=== PATIENT | male | born 1970 | race African-American/Black ===

== ENCOUNTER 2021-08-12 10:31 | Inpatient (IN) | payer MEDICAID ==
[~2021-08-12] VITALS: Ht 182.9 cm; Wt 90.7 kg
[2021-08-12] MEDS ORDERED: ASPIRIN 325 MG TABLET PO ONE (11:00)
[2021-08-12] MEDS ORDERED: IV NS 0.9% 500 ML BAG IV ONE (11:00)
[2021-08-12] MEDS ORDERED: ONDANSETRON HCL/PF 4 MG/2 ML VIAL IV ONE (11:00)
[2021-08-12] MEDS ORDERED: ONDANSETRON HCL/PF 4 MG/2 ML VIAL IVP ONE (11:00)
[2021-08-12] MEDS ORDERED: NITROGLYCERIN 0.4 MG/TAB BOTTLE SL ONE (11:00)
--- NOTE | 2021-08-12 11:00 | NUR ---
Updated with plan of care
[2021-08-12] MEDS ORDERED: ONDANSETRON HCL/PF 4 MG/2 ML VIAL ONE (11:03)
[2021-08-12] MEDS ORDERED: ASPIRIN 325 MG TABLET ONE (11:03)
[2021-08-12] MEDS ORDERED: NITROGLYCERIN 0.4 MG/TAB BOTTLE ONE (11:07)
[2021-08-12 11:08] LABS: BASOPHILS # (AUTO) 0.2 K/uL (0.0-0.2); BASOPHILS % (AUTO) 3.3 % (0.0-2.0); EOSINOPHILS % (AUTO) 2.6 % (0.0-6.0); HEMATOCRIT 50 % (39-51); HEMOGLOBIN 16.4 g/dL (13.5-17.5); LYMPHOCYTES # (AUTO) 2.5 K/uL (0.8-4.8); LYMPHOCYTES % (AUTO) 41.4 % (20.0-44.0); MEAN CORPUSCULAR HGB CONC 33 g/dl (31.0-36.0); MEAN CORPUSCULAR VOLUME 91 fL (80-96); MONOCYTES # (AUTO) 0.5 K/uL (0.1-1.30); NEUTROPHILS # (AUTO) 2.6 K/uL (1.8-8.9); NEUTROPHILS % (AUTO) 43.7 % (43.0-81.0); PLATELET COUNT (AUTO) 224 K/uL (150-450); RED BLOOD CELL COUNT(AUTO) 5.53 MIL/uL (4.5-6.0); WHITE BLOOD COUNT (AUTO) 5.9 K/uL (4.3-11.0)
--- NOTE | 2021-08-12 11:23 | NUR ---
Pt states "Pain gone down a bit but still there." Repeat EKG obtained/MD orders
[2021-08-12 11:27] LABS: CALCIUM, SERUM 9.9 mg/dL (8.5-10.1); CARBON DIOXIDE 34 mmol/L (21-32); CHLORIDE 101 mmol/L (98-107); CREATININE 1.2 mg/dL (0.6-1.3); GLUCOSE 108 mg/dL (74-106); POTASSIUM 3.9 mmol/L (3.5-5.1); SODIUM SERUM 139 mmol/L (136-145); UREA NITROGEN, BLOOD 12 mg/dL (7-18)
[2021-08-12 11:40] LABS: ALANINE AMINOTRANSFERASE 27 U/L (12-78); ALBUMIN 3.9 g/dL (3.4-5.0); ALKALINE PHOSPHATASE 69 U/L (46-116); ASPARTATE AMINOTRANSFERASE 16 U/L (15-37); BILIRUBIN,DIRECT 0.1 mg/dL (0.0-0.2); BILIRUBIN,TOTAL 0.4 mg/dL (0.2-1.0); TOTAL PROTEIN, SERUM 7.8 g/dL (6.4-8.2)
[2021-08-12] MEDS ORDERED: MORPHINE SULFATE INJ 4 MG/ML DISP.SYRIN ONE (11:58)
--- NOTE | 2021-08-12 12:01 | NUR ---
Pt continues to complain of pain- Provider notified w/orders for 4mg Morphine SIVP-given.
--- NOTE | 2021-08-12 12:07 | NUR ---
CALLED NURSE SUP REGARDING PT BED
[2021-08-12] MEDS ORDERED: AMLO10TA4 PO (12:22)
[2021-08-12] MEDS ORDERED: HYDR25TA4 PO (12:22)
--- NOTE | 2021-08-12 13:32 | NUR ---
Resting comfortably in NO obvious distress. No acute changes. Status quo. Awaiting bed assignment
--- NOTE | 2021-08-12 14:50 | NUR ---
ROOM 313-2
--- NOTE | 2021-08-12 15:07 | NUR ---
REPORT GIVEN TO BETTINA TERAN OF TELE UNIT
--- NOTE | 2021-08-12 15:35 | NUR ---
Transported to [facility] per erney NO acute changes. NO obvious distress VSS
[2021-08-12 15:45] VITALS: BP 141/88
--- NOTE | 2021-08-12 16:00 | NUR ---
ADMIN PROG COORD ADMITTING NOTES ADMITTED THIS 50 Y/O MALE PATIENT TO UNIT VIA NICOLERNEY @6376 FROM EMERGENCY ROOM, ACCOMPANIED BY ER NURSE. PATIENT IS ALERT AND ORIENTED X4, VERBALLY RESPONSIVE, NO SIGNS OF ACUTE RESPIRATORY DISTRESS NOTED. WITH ADMITTING DIAGNOSIS OF CHEST PAIN. STABLE ON ROOM AIR. ORIENTED PATIENT TO ROOM. PLACED PATIENT ON FILLER ROOM ATTENDANT WITH CURRENT READING OF NSR @ 66. PATIENT STILL COMPLAINS OF CHEST PAIN. WITH IV ACCESS ON RIGHT ANTECUBITAL AREA #18G, INTACT AND PATENT, SALINE LOCKED. BODY ASSESSMENT DONE, SKIN GENERALLY INTACT, NO SKIN ISSUES NOTED. SAFETY MEASURES INITIATED, BED IN LOWEST LOCKED POSITION, SR UP X2, CALL LIGHT PLACED WITHIN EASY REACH. WILL CONTINUE TO MONITOR.
[2021-08-12] MEDS ORDERED: ACETAMINOPHEN 325 MG TABLET PO PRN (16:30)
[2021-08-12] MEDS ORDERED: MAG HYDROX/AL HYDROX/SIMETH 30 ML UDC PO PRN (16:30)
[2021-08-12] MEDS ORDERED: Z GUARD REMEDY 4 OZ OINT TP PRN (16:30)
[2021-08-12] MEDS ORDERED: MAGNESIUM HYDROXIDE 30 ML UDC PO PRN (16:30)
[2021-08-12] MEDS ORDERED: ONDANSETRON HCL/PF 4 MG/2 ML VIAL IVP PRN (16:30)
[2021-08-12] MEDS ORDERED: ZOLPIDEM TARTRATE 5 MG TABLET PO PRN (16:30)
[2021-08-12] MEDS: ENOXAPARIN SODIUM 40 MG/0.4 ML DISP.SYRIN SQ SCH (16:57)
[2021-08-12] MEDS: MORPHINE SULFATE INJ 2 MG/ML DISP.SYRIN IV PRN ×2 (17:00→21:43)
--- NOTE | 2021-08-12 18:46 | NUR ---
CUSTOMS BROKERAGE AGENT CLOSING NOTES PATIENT RESTING IN BED. NO SIGNS OF ACUTE DISTRESS NOTED. ON ROOM AIR, TOLERATING WELL. NO SOB NOTED. MORPHINE GIVEN FOR C/O CHEST PAIN @ 1700, WITH RELIEF NOTED. IV ACCESS ON RIGHT ANTECUBITAL #18G INTACT AND PATENT, SALINE LOCKED. ON TELE MONITOR WITH CURRENT READING OF NSR @76. SAFETY MEASURES MAINTAINED. WILL ENDORSE TO NEXT SHIFT FOR CONTINUITY OF CARE.
[2021-08-12 20:00] VITALS: BP 113/66
--- NOTE | 2021-08-12 20:00 | NUR ---
ANIMAL ATTENDANT OPENING NOTE PATIENT RECEIVED AWAKE IN BED. A/OX4. NO S/S OF DISTRESS, BREATHING SYMMETRICAL ON ROOM AIR. RAC #20 INTACT AND PATENT. TELE MONITOR REVEALS SR 70. SAFETY MEASURES IN PLACE: BED AT LOWEST POSITION, RAILS UP X2, CALL TYSON WITHIN REACH. WILL CONTINUE TO MONITOR PATIENT.
[2021-08-12 23:51] VITALS: BP 141/94
[2021-08-13 05:00] VITALS: BP 123/83
--- NOTE | 2021-08-13 06:32 | NUR ---
AWNING INSTALLER CLOSING NOTE PATIENT IS ASLEEP IN BED. A/OX4. NO S/S OF DISTRESS, BREATHING UNLABORED ON ROOM AIR. RAC #20 SL INTACT AND PATENT. TELE MONITOR REVEALS SB 55, BUT THIS IS RELATIVE TO HIS NORMAL, AND HE IS CURRENTLY STABLE. SAFETY MEASURES IN PLACE: BED AT LOWEST POSITION, RAILS UP X2, CALL TYSON WITHIN REACH. WILL ENDORSE TO FOLLOWING SHIFT FOR QUINTIN.
[2021-08-13 07:12] LABS: BASOPHILS % (AUTO) 1.1 % (0.0-2.0); EOSINOPHILS % (AUTO) 4.1 % (0.0-6.0); HEMATOCRIT 48 % (39-51); HEMOGLOBIN 15.8 g/dL (13.5-17.5); LYMPHOCYTES # (AUTO) 2.1 K/uL (0.8-4.8); LYMPHOCYTES % (AUTO) 50.6 % (20.0-44.0); MEAN CORPUSCULAR HGB CONC 33 g/dl (31.0-36.0); MEAN CORPUSCULAR VOLUME 90 fL (80-96); MONOCYTES # (AUTO) 0.5 K/uL (0.1-1.30); MONOCYTES % (AUTO) 12.2 % (2.0-12.0); NEUTROPHILS # (AUTO) 1.3 K/uL (1.8-8.9); PLATELET COUNT (AUTO) 211 K/uL (150-450); RED BLOOD CELL COUNT(AUTO) 5.31 MIL/uL (4.5-6.0); WHITE BLOOD COUNT (AUTO) 4.1 K/uL (4.3-11.0)
--- NOTE | 2021-08-13 07:30 | NUR ---
ANGLE DOZER OPERATOR OPENING NOTE RECEIVED PATIENT IN BED, ASLEEP, EASILY AWAKEN BY VERBAL AND TACTILE STIMULI. NO S/S OF DISTRESS, BREATHING SYMMETRICAL ON ROOM AIR, TOLERATING WELL, NO SOB NOTED, NO COMPLAINTS OF PAIN AT THIS TIME. RAC #20 INTACT AND PATENT. ON TELE MONITOR REVEALS SB HR AT 57. SAFETY MEASURES IN PLACE: BED AT LOWEST POSITION, RAILS UP X2, CALL TYSON WITHIN REACH. WILL CONTINUE TO MONITOR PATIENT ACCORDINGLY.
[2021-08-13 07:51] LABS: THYROID STIMULATING HORMONE 1.69 uIU/mL (0.358-3.74)
[2021-08-13] MEDS: PANTOPRAZOLE 40 MG TABLET.DR PO SCH (07:52)
[2021-08-13 08:00] VITALS: BP 134/84
[2021-08-13 08:31] LABS: CALCIUM, SERUM 9.3 mg/dL (8.5-10.1); CREATININE 1.3 mg/dL (0.6-1.3); MAGNESIUM 2.2 mg/dL (1.8-2.4); POTASSIUM 4.2 mmol/L (3.5-5.1)
[2021-08-13] MEDS: ASPIRIN 81 MG TAB.CHEW PO SCH (08:33)
[2021-08-13] MEDS: AMLODIPINE BESYLATE 10 MG TABLET PO SCH (08:34)
[2021-08-13] MEDS: HYDROCHLOROTHIAZIDE 25 MG TABLET PO SCH (08:34)
[2021-08-13 09:28] VITALS: BP 134/84
[2021-08-13] MEDS: ENOXAPARIN SODIUM 40 MG/0.4 ML DISP.SYRIN SQ SCH (16:34)
--- NOTE | 2021-08-13 18:54 | NUR ---
SUPERVISOR CORRESPONDENCE SECTION CLOSING NOTE RECEIVED PATIENT IN BED, ASLEEP, EASILY AWAKEN BY VERBAL AND TACTILE STIMULI. NO S/S OF DISTRESS, BREATHING SYMMETRICAL ON ROOM AIR, TOLERATING WELL, NO SOB NOTED, NO COMPLAINTS OF PAIN AT THIS TIME. RAC #20 INTACT AND PATENT. ON TELE MONITOR REVEALS SR HR AT 67 WITH PVC'S. SAFETY MEASURES IN PLACE: BED AT LOWEST POSITION, RAILS UP X2, CALL TYSON WITHIN REACH. ALL NEEDS ATTENDED AND MET. DUE MEDS GIVEN ORDERED. WILL ENDORSE TO ONCOMING SHIFT FOR QUINTIN.
--- NOTE | 2021-08-13 19:35 | NUR ---
RN NOTES RECEIVED PATIENT AWAKE ON BED TALKING ON HIS CELLHONE, A/OX4, AMBULATORY, SR ON TELE MONITOR HR-66, DENIES PAIN, NO SOB, CALL LIGHT WITHIN REACH, [id number], WILL CONTINUE TO MONITOR
[2021-08-13 20:00] VITALS: BP 152/94
[2021-08-13 20:31] VITALS: BP 152/94
[2021-08-13] MEDS: MORPHINE SULFATE INJ 2 MG/ML DISP.SYRIN IV PRN (20:44)
--- NOTE | 2021-08-13 20:44 | NUR ---
RN NOTES COMPLAINED OF CHEST PAIN- MORPHINE 2 MG IV GIVEN ORDERED. V/S STABLE
[2021-08-14 00:28] VITALS: BP 102/65
[2021-08-14 04:11] VITALS: BP 154/97
--- NOTE | 2021-08-14 06:19 | NUR ---
RN NOTES SLEEPING BUT AROUSABLE, DENIES PAIN, NO SOB, MORNING CARE RENDERED, CALL LIGHT WITHIN REACH, [id number], PT. NEEDS ATTENDED
[2021-08-14 06:40] LABS: BASOPHILS % (AUTO) 0.1 % (0.0-2.0); EOSINOPHILS % (AUTO) 2.9 % (0.0-6.0); HEMATOCRIT 49 % (39-51); LYMPHOCYTES # (AUTO) 2.1 K/uL (0.8-4.8); LYMPHOCYTES % (AUTO) 46.3 % (20.0-44.0); MEAN CORPUSCULAR HGB CONC 33 g/dl (31.0-36.0); MEAN CORPUSCULAR VOLUME 90 fL (80-96); MONOCYTES # (AUTO) 0.5 K/uL (0.1-1.30); MONOCYTES % (AUTO) 10.3 % (2.0-12.0); NEUTROPHILS # (AUTO) 1.8 K/uL (1.8-8.9); NEUTROPHILS % (AUTO) 40.4 % (43.0-81.0); PLATELET COUNT (AUTO) 223 K/uL (150-450); WHITE BLOOD COUNT (AUTO) 4.5 K/uL (4.3-11.0)
[2021-08-14 07:22] LABS: CALCIUM, SERUM 9.5 mg/dL (8.5-10.1); CREATININE 1.3 mg/dL (0.6-1.3); MAGNESIUM 2.1 mg/dL (1.8-2.4); PHOSPHORUS 4.4 mg/dL (2.5-4.9); POTASSIUM 3.9 mmol/L (3.5-5.1)
--- NOTE | 2021-08-14 07:23 | NUR ---
SECOND SHIFT SUPERVISOR OPENING NOTES PATIENT RECEIVED AWAKE IN BED IN NO ACUTE SIGNS OF DISTRESS. A/OX4. ABLE TO MAKE NEEDS KNOWN, DENIES PAIN OR DISCOMFORTS AT THIS TIME. ON ROOM AIR. TOLERATING WELL WITH NO SOB NOTED. IV ACCESS ON RAC #20G INTACT AND PATENT. TELE-MONITOR SHOWS NSR, HR 77, NO C/O CARDIAC DISTRESS VOICED. SAFETY MEASURES IN PLACE: BED AT LOWEST LOCKED POSITION, SIDE-RAILS UP X2, CALL TYSON WITHIN REACH. WILL CONTINUE TO MONITOR PATIENT.
[2021-08-14 08:00] VITALS: BP 139/90
[2021-08-14] MEDS: PANTOPRAZOLE 40 MG TABLET.DR PO SCH (08:11)
[2021-08-14] MEDS: ASPIRIN 81 MG TAB.CHEW PO SCH (08:11)
[2021-08-14] MEDS: AMLODIPINE BESYLATE 10 MG TABLET PO SCH (08:12)
[2021-08-14] MEDS: HYDROCHLOROTHIAZIDE 25 MG TABLET PO SCH (08:13)
[2021-08-14 12:00] VITALS: BP 134/93
--- NOTE | 2021-08-14 14:44 | NUR ---
RN DISCHARGED NOTES PATIENT STABLE AND DISCHARGED HOME IN STABLE CONDITION. A/OX4. ABLE TO MAKE NEEDS KNOWN AND AMBULATORY WITH STEADY GAIT. V/S CHECKED, STABLE AND RECORDED. ALL BELONGINGS ACCOUNTED FOR AND PT SIGNED BELONGINGS LIST FORM. IV ACCESS ON RAC #20G REMOVED WITH NO ACTIVE BLEEDING NOTED, DRY PRESSURE DRESSING APPLIED AT SITE. HEALTH TEACHINGS/DISCHARGED INSTRUCTIONS GIVEN TO PT AND VERBALIZED UNDERSTANDING. EXIT FOLDER HANDED TO PT. PT LEFT UNIT AT 1420 AMBULATORY ACCOMPANIED BY HIS FRIEND DONALD AND SIDNEY HAWKINS. AND CHARGE NURSE AWARE OF DISCHARGE.
== END 2021-08-14 14:20 | disposition home or self-care (01) | DRG 203 ==
LOC: ER 10:34 → TELE 15:20
PROVIDERS: ADMIT Student in an Organized Health Care Education/Training Program; ATTEND Student in an Organized Health Care Education/Training Program
DX: M94.0 Chondrocostal junction syndrome [Tietze] (principal); E78.00 Pure hypercholesterolemia, unspecified; I10 Essential (primary) hypertension; Z87.891 Personal history of nicotine dependence; Z82.49 Family history of ischemic heart disease and other diseases of the circulatory system; Z88.8 Allergy status to other drugs, medicaments and biological substances
CPT/HCPCS: 36415; 71045-TC; 80048-TC; 80061-TC; 80076-TC; 83735-TC; 83880; 84100-TC; 84443-TC; 84484-TC; 85025-TC; 93307-TC; C9803; G0378; J1650; J2270; J2405; J7040